=== PATIENT | female | born 1950 | race American Indian/Alaskan Native ===

== ENCOUNTER 2017-07-04 15:57 | Emergency (ER) | payer MEDICARE ==
[2017-07-04 16:08] VITALS: BP 144/73
[2017-07-04] MEDS ORDERED: MOTRIN PO ONE (20:28)
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
== END 2017-07-04 22:02 | disposition home or self-care (01) ==
LOC: ED 15:57
DX: S86.911A Strain of unspecified muscle(s) and tendon(s) at lower leg level, right leg, initial encounter (principal); R51 Headache; I10 Essential (primary) hypertension; Y04.2XXA Assault by strike against or bumped into by another person, initial encounter; Y93.89 Activity, other specified; Y99.8 Other external cause status; Y92.410 Unspecified street and highway as the place of occurrence of the external cause
CPT/HCPCS: 70450; 72125

== ENCOUNTER 2019-01-16 05:33 | Emergency (ER) | payer MEDICARE, OTHER ==
[2019-01-16 05:41] VITALS: BP 149/90
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
== END 2019-01-16 07:15 | disposition home or self-care (01) ==
LOC: ED 05:33
DX: T16.2XXA Foreign body in left ear, initial encounter (principal); I10 Essential (primary) hypertension; Z90.89 Acquired absence of other organs; Z98.890 Other specified postprocedural states; Z79.899 Other long term (current) drug therapy; X58.XXXA Exposure to other specified factors, initial encounter; Y93.89 Activity, other specified; Y92.89 Other specified places as the place of occurrence of the external cause; Y99.8 Other external cause status